=== PATIENT | female | born 1995 | race Caucasian/White ===

== ENCOUNTER 2018-04-07 12:25 | Emergency (ER) | payer BC ==
[2018-04-07 12:30] VITALS: BP 126/74
--- NOTE | 2018-04-07 12:39 | EDPHY ---
H & P Time Seen by Provider: 04/07/18 12:33 HPI/ROS: CHIEF COMPLAINT: Left pretibial laceration HISTORY OF PRESENT ILLNESS: 22-year-old female arrives via private vehicle complaining of acute left pretibial laceration. She is getting off of the ski lift when she and somebody fell and/or snowboard ran across her leg sustaining laceration. She is able to bear weight albeit with pain to same location. Tetanus up-to-date PHYSICAL EXAM (Prior to examination, patient consented to physical exam, hands were washed and my usual and customary physical exam procedures followed) 1) GENERAL: Well-developed, well-nourished, alert and oriented. Appears to be in no acute distress. 2) HEAD: Normocephalic 3) HEENT: sclera anicteric 4) LUNGS: Breathing comfortably. 5) SKIN: Left proximal pretibial 4 cm well delineated linear laceration. 6) MUSCULOSKELETAL: Active and passive Dorsiflexion plantar flexion , supination pronation distally intact no deficits. 7) NEUROLOGIC: Full sensation distally. DP PT pulses present and brisk distally with brisk capillary refill. Smoking Status: Never smoked Constitutional: Initial Vital Signs Temperature (C) 36.7 C 04/07/18 12:27 Heart Rate 91 04/07/18 12:27 Respiratory Rate 18 04/07/18 12:27 Blood Pressure 126/74 H 04/07/18 12:27 O2 Sat (%) 98 04/07/18 12:27 O2 Delivery Mode Room Air Allergies/Adverse Reactions: Penicillins Allergy (Verified 04/07/18 12:27) Sulfa (Sulfonamide Antibiotics) Allergy (Verified 04/07/18 12:27) sulfamethoxazole [From Bactrim] Allergy (Verified 04/07/18 12:27) trimethoprim [From Bactrim] Allergy (Verified 04/07/18 12:27) Home Medications: Medication Instructions Recorded NK [No Known Home Meds] 04/07/18 MDM/Departure - MDM Imaging: I viewed and interpreted images myself Procedures: Procedure: Laceration repair. I explained the indications, risks and benefits for both laceration repair and anesthetic administration. Verbal consent was obtained from the patient. The laceration on the left pretibial region was anesthetized using 0.5% bupivicaine with epinephrine. After anesthetic administered the patient was observed for a period of time and had no apparent adverse effects. The wound was cleaned, prepped, draped in normal sterile fashion and explored to its base. No foreign body seen, no foreign bodies palpated. There were no deep structures involved. The wound was repaired with 9 simple interrupted 4 0 Ethilon sutures. The wound repair was complex. The procedure was performed by myself. Patient has been informed that scarring will occur, although efforts have been made to minimize this. - Depart Disposition: Home, Routine, Self-Care Clinical Impression: Snow boarding Laceration of left leg excluding thigh Qualifiers: Encounter type: initial encounter Qualified Code(s): S81.812A - Laceration without foreign body, left lower leg, initial encounter Condition: Good Instructions: Care For Your Stitches (ED), Laceration (ED) Additional Instructions: Return to the ER if you develop redness, swelling, discharge, warmth to the wound, red streaks going up your arm, or any other symptoms that concern you. Referrals: Return, to the ER in 14 days for suture removal [Other] - 04/21/18
== END 2018-04-07 13:30 | disposition home or self-care (01) ==
PROC: 0HQLXZZ Repair Left Lower Leg Skin, External Approach (ICD-10-PCS; principal; 2018-04-07)
DX: S81.812A Laceration without foreign body, left lower leg, initial encounter (principal); V98.3XXA Accident to, on or involving ski lift, initial encounter; Y93.23 Activity, snow (alpine) (downhill) skiing, snowboarding, sledding, tobogganing and snow tubing

== ENCOUNTER 2018-07-26 17:06 | Emergency (ER) | payer BC ==
[2018-07-26 17:38] VITALS: BP 120/81
--- NOTE | 2018-07-26 18:08 | EDPHY ---
H & P Stated Complaint: L 1st finger lac Time Seen by Provider: 07/26/18 18:08 HPI/ROS: HPI: This is a 22-year-old female who presents with Chief Complaint: Left index finger laceration Location: Left index finger Quality: Laceration Duration: 1 hr prior to arrival Signs and Symptoms: + bleeding, no radiation, no numbness, no weakness, no tingling, no incontinence, no decreased range of motion, no swelling, no pain, no fever Timing: Acute Severity: Mild Context: Patient is student at [employer], presents with accidentally cutting her left index finger with a knife while cutting onions 1 hr prior to arrival. She reports that the area started to bleed and she applied direct pressure. She denies any decreased range of motion, paresthesias , radiation. Tetanus is current. Modifying Factors: Direct pressure Comment: ROS: A comprehensive 10 system review of systems is otherwise negative aside from elements mentioned in the history of present illness. MEDICAL/SURGICAL/SOCIAL HISTORY: Medical history: hodgkins [place] at age 10, anemia-iron deficiency type Surgical history: Denies Social history: Student at [employer]. Denies tobacco use. CONSTITUTIONAL: Well-developed, well-nourished, young adult white female, polite and cooperative, awake and alert, no obvious distress HEENT: Atraumatic and normocephalic. NECK: supple, no midline tenderness Cardiovascular: Normal S1/S2, regular rate, regular rhythm, without murmur rub or gallop. PULMONARY/CHEST: Symmetrical and nontender. Clear to auscultation bilaterally. Good air movement. No accessory muscle usage. ABDOMEN: Soft, nondistended, nontender. EXTREMITIES: 2/2 pulses, strength 5/5, left index finger superficial avulsion laceration noted on the medial aspect between the PIP and DI P joint; no active bleeding; 1.5 mm. DIP/PIP/MCP flexion/extension intact with good light touch sensation. no deformities, no clubbing, no cyanosis or edema. NEUROLOGICAL: no focal neuro deficits. GCS 15. Light touch sensation intact. SKIN: Warm and dry, no erythema. no rash. Good capillary refill. Source: Patient Exam Limitations: No limitations - Medical/Surgical History Hx Asthma: No Hx Chronic Respiratory Disease: No Hx Diabetes: No Hx Cardiac Disease: No Hx Renal Disease: No Hx Cirrhosis: No Hx Alcoholism: No Hx HIV/AIDS: No Hx Splenectomy or Spleen Trauma: No Other PMH: hodgkins [place] at age 10 - Social History Smoking Status: Never smoked Constitutional: Initial Vital Signs Temperature (C) 37.1 C 07/26/18 17:37 Heart Rate 104 H 07/26/18 17:37 Respiratory Rate 16 07/26/18 17:37 Blood Pressure 120/81 H 07/26/18 17:37 O2 Sat (%) 97 07/26/18 17:37 O2 Delivery Mode Room Air Allergies/Adverse Reactions: Penicillins Allergy (Verified 07/26/18 17:36) Sulfa (Sulfonamide Antibiotics) Allergy (Verified 07/26/18 17:36) sulfamethoxazole [From Bactrim] Allergy (Verified 07/26/18 17:36) trimethoprim [From Bactrim] Allergy (Verified 07/26/18 17:36) Home Medications: Medication Instructions Recorded Iron 07/26/18 Medical Decision Making Procedures: Procedure: Laceration repair. Verbal consent was obtained from the patient. The superficial, avulsion, 1.5-2 mm laceration on the medial aspect of the left index finger was not anesthetized in the usual fashion. The wound was irrigated, draped and explored to its base with a gloved finger. There were no deep structures involved. No tendon injury was identified. The wound was repaired with Dermabond. ED Course/Re-evaluation: Vital signs reviewed and show mild tachycardia. Tetanus is up-to-date. Copiously irrigated; superficial avulsion laceration closed with Dermabond Xeroform and clean sterile dressing applied. Verbal and written wound care Instructions provided. No signs of neurovascular compromise/tenting of skin/compartment syndrome/ extremities and joints examined above and below area of concern and are neurovascularly intact. This patient was seen under the supervision of my secondary supervising physician. I evaluated care for this patient. Discussed this patient with Dr. Correa. Differential Diagnosis: Differential diagnosis includes but is not limited to laceration, nerve injury, tendon injury, foreign body. Departure - Departure Disposition: Home, Routine, Self-Care Clinical Impression: Laceration of index finger of left hand without complication Qualifiers: Encounter type: initial encounter Qualified Code(s): S61.211A - Laceration without foreign body of left index finger without damage to nail, initial encounter Condition: Good Instructions: Laceration (ED), Skin Adhesive Care (ED) Additional Instructions: Keep the dressing dry and in place for 48 hours. After 48 hours, you may remove the dressing; wash the site daily with mild soap and water; then pat dry. Take Tylenol 650 mg every 4 hours and/or Ibuprofen 600 mg every 8 hours with food as needed for pain. Return to the ER immediately if you experience redness, red streaks, have fevers /chills, flu like symptoms, limited range of motion, or any other symptoms that concern you. Referrals: [facility] Deshpande,. [Clinic] - Follow Up Only If Needed
[2018-07-26] MEDS ORDERED: SKIN ADHESIVE (DERMABOND) 1 EACH TP ONE (18:15)
== END 2018-07-26 18:30 | disposition home or self-care (01) ==
PROC: 0HQGXZZ Repair Left Hand Skin, External Approach (ICD-10-PCS; principal; 2018-07-26)
DX: S61.211A Laceration without foreign body of left index finger without damage to nail, initial encounter (principal); W26.0XXA Contact with knife, initial encounter; Y93.G1 Activity, food preparation and clean up; Y92.000 Kitchen of unspecified non-institutional (private) residence as the place of occurrence of the external cause